=== PATIENT | male | born 1975 | race African-American/Black ===

== ENCOUNTER 2019-08-29 04:29 | Inpatient (IN) ==
[2019-08-29] MEDS ORDERED: hydrALAZINE 20 MG/1 ML VIAL IV STA ×2 (04:51→05:11)
[2019-08-29] MEDS ORDERED: hydrALAZINE 20 MG/1 ML VIAL ONE (04:52)
[2019-08-29] MEDS ORDERED: ONDANSETRON 4 MG/2 ML VIAL ONE (05:15)
[2019-08-29] MEDS ORDERED: MORPHINE 4 MG/1 ML VIAL ONE (05:16)
[2019-08-29 05:21] LABS: Basophils # 0.1 10*3/uL (0.0-0.2); Basophils % 0.8 % (0.0-0.8); Eosinophils # 0.4 10*3/uL (0.0-0.87); Eosinophils % 3.7 % (0.00-10.9); Hemoglobin 8.7 GM/DL (14.0-18.0); Immature Granulocytes % 0.3 %; Immature Granulocytes Absolute 0.03 #; Lymphocytes # 1.7 10*3/uL (1.4-4.0); Lymphocytes % 16.5 % (21.2-54.2); Mean Corpuscular HGB Conc 32.2 GM/DL (32-36); Mean Corpuscular Volume 88.8 FL (87-102); Monocytes % 7.2 % (1.7-12.7); Neutrophils % 71.5 % (38.7-73.9); Platelet Count 84 T/CUMM (130-400); Red Blood Count 3.04 MC/CUMM (3.8-5.5); Red Cell Distribution Width 17.6 % (9.3-17.3); White Blood Count 10.1 T/CUMM (4-12)
[2019-08-29] MEDS ORDERED: ONDANSETRON 4 MG/2 ML VIAL IV STA (05:28)
[2019-08-29] MEDS ORDERED: MORPHINE 4 MG/1 ML VIAL IV STA (05:28)
[2019-08-29 05:41] LABS: Albumin 3.5 G/DL (3.4-5.0); Bilirubin,Total 0.5 MG/DL (0.2-1.0); Calcium 9.4 MG/DL (8.5-10.1); Eosinophils 5 % (0-10); Lymphocytes 21 % (20-55); Osmolality,Calculated 269.8 MOS/KG (273-304); Segmented Neutrophils 70 % (50-85); Total Cells Counted 100; Total Protein 7.4 G/DL (6.4-8.3)
[2019-08-29 05:42] LABS: Hypochromasia 1+; Microcytosis Slight; Ovalocytes Slight
[2019-08-29] MEDS ORDERED: niCARdipine 25 MG/10 ML VIAL IV ONE ×3 (05:51→10:47)
[2019-08-29 05:55] LABS: PT Patient Result 10.9 SECS (9.6-12.2)
[2019-08-29] MEDS: niCARdipine INJ 25 MG in SODIUM CHLORIDE 0.9% 240 ML IV PRN ×4 (06:00→12:42)
[2019-08-29 06:03] LABS: Troponin I 0.071 NG/ML (0.00-0.045)
[2019-08-29] MEDS ORDERED: cloNIDine 0.1 MG TABLET PO STA (08:11)
[2019-08-29] MEDS: ISOSORBIDE MONONITRATE 60 MG TABLET PO SCH (10:02)
[2019-08-29] MEDS: LOSARTAN 50 MG TABLET PO SCH (10:02)
[2019-08-29] MEDS: MORPHINE 4 MG/1 ML VIAL IV PRN (11:06)
[2019-08-29] MEDS ORDERED: ONDANSETRON 4 MG/2 ML VIAL IV PRN (12:02)
[2019-08-29] MEDS ORDERED: LACTULOSE 20 GM/30 ML UDCUP PO PRN (12:02)
[2019-08-29] MEDS ORDERED: CALCIUM CARBONATE CHEW 500 MG TABLET PO PRN (12:02)
[2019-08-29] MEDS: PANTOPRAZOLE 40 MG TABLET PO SCH (12:38)
[2019-08-29] MEDS: oxyCODONE/ACETAMINOPHEN 5-325 MG TABLET PO PRN (17:37)
[2019-08-30] MEDS: NIFEdipine 10 MG CAPSULE PO PRN ×3 (04:12→16:24)
[2019-08-30] MEDS: oxyCODONE/ACETAMINOPHEN 5-325 MG TABLET PO PRN (04:13)
[2019-08-30 04:44] LABS: Basophils # 0.1 10*3/uL (0.0-0.2); Basophils % 0.9 % (0.0-0.8); Eosinophils # 0.3 10*3/uL (0.0-0.87); Eosinophils % 3.5 % (0.00-10.9); Hematocrit 25.1 VOL% (42.0-52.0); Hemoglobin 7.9 GM/DL (14.0-18.0); Immature Granulocytes % 0.4 %; Immature Granulocytes Absolute 0.03 #; Lymphocytes % 12.2 % (21.2-54.2); Mean Corpuscular HGB Conc 31.5 GM/DL (32-36); Mean Corpuscular Volume 90.3 FL (87-102); Mean Platelet Volume 11.3 FL (9.6-12.0); Monocytes % 8.8 % (1.7-12.7); Neutrophils % 74.2 % (38.7-73.9); Platelet Count 143 T/CUMM (130-400); Red Blood Count 2.78 MC/CUMM (3.8-5.5); Red Cell Distribution Width 17.4 % (9.3-17.3)
[2019-08-30 05:15] LABS: Calcium 8.5 MG/DL (8.5-10.1); Osmolality,Calculated 270.5 MOS/KG (273-304)
[2019-08-30] MEDS: PANTOPRAZOLE 40 MG TABLET PO SCH (08:56)
[2019-08-30] MEDS: ISOSORBIDE MONONITRATE 60 MG TABLET PO SCH (08:56)
[2019-08-30] MEDS: LOSARTAN 50 MG TABLET PO SCH (08:56)
[2019-08-30] MEDS: MORPHINE 4 MG/1 ML VIAL IV PRN ×2 (16:24→20:32)
[2019-08-31] MEDS: oxyCODONE/ACETAMINOPHEN 5-325 MG TABLET PO PRN (00:41)
[2019-08-31] MEDS: NIFEdipine 10 MG CAPSULE PO PRN (04:31)
[2019-08-31] MEDS: MORPHINE 4 MG/1 ML VIAL IV PRN (04:31)
[2019-08-31 05:36] LABS: Basophils # 0.1 10*3/uL (0.0-0.2); Basophils % 0.8 % (0.0-0.8); Eosinophils # 0.3 10*3/uL (0.0-0.87); Eosinophils % 3.6 % (0.00-10.9); Hematocrit 25.9 VOL% (42.0-52.0); Hemoglobin 8.3 GM/DL (14.0-18.0); Immature Granulocytes % 0.7 %; Immature Granulocytes Absolute 0.07 #; Lymphocytes # 1.5 10*3/uL (1.4-4.0); Lymphocytes % 15.3 % (21.2-54.2); Mean Platelet Volume 11.5 FL (9.6-12.0); Monocytes % 11.5 % (1.7-12.7); Neutrophils % 68.1 % (38.7-73.9); Platelet Count 129 T/CUMM (130-400); Red Blood Count 2.91 MC/CUMM (3.8-5.5); Red Cell Distribution Width 17.3 % (9.3-17.3); White Blood Count 9.5 T/CUMM (4-12)
[2019-08-31 05:51] LABS: Calcium 8.6 MG/DL (8.5-10.1); Osmolality,Calculated 266.8 MOS/KG (273-304)
[2019-08-31] MEDS: PANTOPRAZOLE 40 MG TABLET PO SCH (10:47)
[2019-08-31] MEDS: LOSARTAN 50 MG TABLET PO SCH (10:47)
[2019-08-31] MEDS: ISOSORBIDE MONONITRATE 60 MG TABLET PO SCH (10:47)
[2019-08-31 17:10] VITALS: BP 188/88
== END 2019-08-31 14:00 | disposition home or self-care (01) | DRG 291 ==
LOC: EDBD → EDUNIT# → N.ED 04:29 → N.EDINP 08:12 → SUATTDRO 08:12 → N.CC 09:03 → N.5E 08-30 17:26
PROVIDERS: ADMIT Internal Medicine; ATTEND Internal Medicine

== ENCOUNTER 2019-11-15 14:03 | Inpatient (IN) ==
[2019-11-15] MEDS ORDERED: FUROSEMIDE 100 MG/10 ML VIAL IV STA (14:28)
[2019-11-15 15:13] LABS: Basophils # 0.1 10*3/uL (0.0-0.2); Basophils % 0.9 % (0.0-0.8); Eosinophils # 0.3 10*3/uL (0.0-0.87); Eosinophils % 3.6 % (0.00-10.9); Hematocrit 30.9 VOL% (42.0-52.0); Hemoglobin 10.3 GM/DL (14.0-18.0); Immature Granulocytes % 0.4 %; Immature Granulocytes Absolute 0.04 #; Lymphocytes # 1.1 10*3/uL (1.4-4.0); Lymphocytes % 12.1 % (21.2-54.2); Mean Corpuscular HGB Conc 33.3 GM/DL (32-36); Mean Corpuscular Volume 82.6 FL (87-102); Monocytes % 9.3 % (1.7-12.7); Neutrophils % 73.7 % (38.7-73.9); Platelet Count 62 T/CUMM (130-400); Red Blood Count 3.74 MC/CUMM (3.8-5.5); Red Cell Distribution Width 18.2 % (9.3-17.3); White Blood Count 8.9 T/CUMM (4-12)
[2019-11-15 15:32] LABS: Alanine Aminotransferase 12 U/L (16-61); Alkaline Phosphatase 46 U/L (45-117); Aspartate Amino Transferase 12 U/L (0-37); Blood Urea Nitrogen 82 MG/DL (7-18); Calcium 9.6 MG/DL (8.5-10.1); Estimated Glom Filtration Rate 4 ML/MIN; Ferritin 1833.8 ng/ml (26-388); Glucose 98 MG/DL (74-106); Osmolality,Calculated 290.4 MOS/KG (273-304); Total Protein 7.7 G/DL (6.4-8.3)
[2019-11-15 15:37] LABS: INR 1.1; PT Patient Result 11.4 SECS (9.8-11.9); Partial Thromboplastin Time 35.3 SECS (23.9-33.8)
[2019-11-15] MEDS ORDERED: hydrALAZINE 20 MG/1 ML VIAL IV STA ×2 (15:41→16:34)
[2019-11-15 15:45] LABS: Troponin I 0.243 NG/ML (0.00-0.045)
[2019-11-15 16:01] LABS: Anisocytosis 2+; Hypochromasia 1+; Microcytosis Slight; Platelet Estimate Adequate
[2019-11-15 16:02] LABS: Schistocytes Few
[2019-11-15] MEDS ORDERED: DEXTROSE 10% 250 ML BAG IV PRN (16:54)
[2019-11-15] MEDS ORDERED: GLUCAGON 1 MG VIAL IM PRN (16:54)
[2019-11-15] MEDS: NICOTINE 21 MG/24 HR PATCH TRANSDERM SCH (18:45)
[2019-11-15] MEDS: cefTRIAXone 1,000 MG in SYRINGE 1 EACH IV SCH (18:45)
[2019-11-15] MEDS: AZITHROMYCIN INJ 500 MG in SODIUM CHLORIDE 0.9% 250 ML IV SCH (21:38)
[2019-11-15] MEDS ORDERED: FUROSEMIDE 40 MG/4 ML VIAL ONE (22:21)
[2019-11-15] MEDS ORDERED: FUROSEMIDE INJ 160 MG in SODIUM CHLORIDE 0.9% 50 ML IV ONE (22:22)
[2019-11-15] MEDS ORDERED: metOLazone 5 MG TABLET PO ONE (23:00)
[2019-11-16 03:42] LABS: Basophils # 0.1 10*3/uL (0.0-0.2); Basophils % 0.8 % (0.0-0.8); Eosinophils # 0.1 10*3/uL (0.0-0.87); Eosinophils % 0.7 % (0.00-10.9); Hematocrit 30.6 VOL% (42.0-52.0); Hemoglobin 9.9 GM/DL (14.0-18.0); Immature Granulocytes % 0.4 %; Immature Granulocytes Absolute 0.04 #; Lymphocytes % 9.5 % (21.2-54.2); Mean Corpuscular HGB Conc 32.4 GM/DL (32-36); Mean Corpuscular Volume 84.1 FL (87-102); Monocytes % 6.1 % (1.7-12.7); Neutrophils % 82.5 % (38.7-73.9); Platelet Count 94 T/CUMM (130-400); Red Blood Count 3.64 MC/CUMM (3.8-5.5); Red Cell Distribution Width 18.2 % (9.3-17.3); White Blood Count 10.4 T/CUMM (4-12)
[2019-11-16 04:07] LABS: Alanine Aminotransferase < 9 U/L (16-61); Albumin 2.9 G/DL (3.4-5.0); Alkaline Phosphatase 43 U/L (45-117); Aspartate Amino Transferase 11 U/L (0-37); Blood Urea Nitrogen 92 MG/DL (7-18); Calcium 9.5 MG/DL (8.5-10.1); Estimated Glom Filtration Rate 3 ML/MIN; Glucose 86 MG/DL (74-106); Osmolality,Calculated 288.7 MOS/KG (273-304); Total Protein 7.7 G/DL (6.4-8.3)
[2019-11-16 05:31] LABS: Hypochromasia 1+; Microcytosis 1+
[2019-11-16 05:32] LABS: Acanthocytes Few; Anisocytosis 1+; Burr Cells Few; Poikilocytosis 1+; Target Cells Slight
[2019-11-16 05:33] LABS: Platelet Estimate Decreased
[2019-11-16] MEDS ORDERED: HEPARIN 10,000 UNIT/10 ML VIAL IV PRN (06:17)
[2019-11-16 06:40] LABS: Apearance,Urine CLEAR (Clear); Bacteria,Urine Many /HPF (Few); Bilirubin,Urine Negative (Negative); Blood, Urine Negative (Negative); Glucose,Urine (UA) Negative (Negative); Ketones,Urine Negative (Negative); Mucus,Urine Occasional /LPF (Occasional); Nitrite,Urine Negative (Negative); Protein,Urine 100 MG/DL; RBC,Urine 2 /HPF (0-4); Squamous Epithelial Cell,Urine Occasional /HPF (0-10); Urine Color Yellow (Yellow); Urine Urobilinogen < 2.0 EU/DL (0.2-1.0); WBC,Urine <1 /HPF (0-6)
[2019-11-16] MEDS: NICOTINE 21 MG/24 HR PATCH TRANSDERM SCH (08:56)
[2019-11-16] MEDS: PANTOPRAZOLE 40 MG TABLET PO SCH (08:57)
[2019-11-16] MEDS ORDERED: CALCIUM (CARBONATE) 600 MG TABLET PO PRN (11:19)
[2019-11-16] MEDS ORDERED: HEPARIN 10,000 UNIT/10 ML VIAL IV ONE (11:30)
[2019-11-16] MEDS ORDERED: HEPARIN 10,000 UNIT/10 ML VIAL IV SCH (11:45)
[2019-11-16] MEDS: LOSARTAN 50 MG TABLET PO SCH (11:50)
[2019-11-16] MEDS: ISOSORBIDE MONONITRATE 60 MG TABLET PO SCH (11:50)
[2019-11-16] MEDS: SEVELAMER CARBONATE 800 MG TABLET PO SCH ×2 (12:11→17:43)
[2019-11-16] MEDS ORDERED: ACETAMINOPHEN 325 MG TABLET ONE (12:19)
[2019-11-16] MEDS: hydrALAZINE 20 MG/1 ML VIAL IV PRN ×2 (16:25→21:06)
[2019-11-16] MEDS: cefTRIAXone 1,000 MG in SYRINGE 1 EACH IV SCH (17:30)
[2019-11-16] MEDS: ACETAMINOPHEN 325 MG TABLET PO PRN (20:24)
[2019-11-16] MEDS: AZITHROMYCIN INJ 500 MG in SODIUM CHLORIDE 0.9% 250 ML IV SCH (21:04)
[2019-11-17 04:45] LABS: Basophils # 0.1 10*3/uL (0.0-0.2); Basophils % 0.9 % (0.0-0.8); Eosinophils # 0.6 10*3/uL (0.0-0.87); Eosinophils % 6.8 % (0.00-10.9); Hematocrit 30.5 VOL% (42.0-52.0); Hemoglobin 10.1 GM/DL (14.0-18.0); Immature Granulocytes % 0.3 %; Immature Granulocytes Absolute 0.03 #; Lymphocytes # 1.3 10*3/uL (1.4-4.0); Lymphocytes % 14.8 % (21.2-54.2); Mean Corpuscular HGB Conc 33.1 GM/DL (32-36); Mean Corpuscular Volume 81.6 FL (87-102); Neutrophils % 69.2 % (38.7-73.9); Platelet Count 102 T/CUMM (130-400); Red Blood Count 3.74 MC/CUMM (3.8-5.5); Red Cell Distribution Width 18.5 % (9.3-17.3); White Blood Count 8.7 T/CUMM (4-12)
[2019-11-17] MEDS: hydrALAZINE 20 MG/1 ML VIAL IV PRN (05:00)
[2019-11-17 05:17] LABS: Bilirubin,Total 0.7 MG/DL (0.2-1.0); Calcium 9.4 MG/DL (8.5-10.1); Osmolality,Calculated 282.4 MOS/KG (273-304); Total Protein 7.8 G/DL (6.4-8.3)
[2019-11-17 06:15] LABS: Eosinophils 10 % (0-10); Lymphocytes 18 % (20-55); Segmented Neutrophils 66 % (50-85); Total Cells Counted 100
[2019-11-17 06:16] LABS: Anisocytosis 1+; Ovalocytes 1+; Target Cells 1+
[2019-11-17 06:17] LABS: Acanthocytes Few; Platelet Estimate Adequate
[2019-11-17] MEDS ORDERED: ONDANSETRON 4 MG/2 ML VIAL IV ONE (08:30)
[2019-11-17] MEDS ORDERED: ONDANSETRON 4 MG/2 ML VIAL ONE (08:32)
[2019-11-17] MEDS: LOSARTAN 50 MG TABLET PO SCH (09:04)
[2019-11-17] MEDS: NICOTINE 21 MG/24 HR PATCH TRANSDERM SCH (09:04)
[2019-11-17] MEDS: AZITHROMYCIN 250 MG TABLET PO SCH (09:04)
[2019-11-17] MEDS: SEVELAMER CARBONATE 800 MG TABLET PO SCH ×3 (09:04→17:22)
[2019-11-17] MEDS: PANTOPRAZOLE 40 MG TABLET PO SCH (09:04)
[2019-11-17] MEDS: ISOSORBIDE MONONITRATE 60 MG TABLET PO SCH (09:04)
[2019-11-17] MEDS: cefTRIAXone 1,000 MG in SYRINGE 1 EACH IV SCH (18:00)
[2019-11-18 05:19] LABS: Basophils # 0.1 10*3/uL (0.0-0.2); Basophils % 0.6 % (0.0-0.8); Eosinophils # 0.7 10*3/uL (0.0-0.87); Eosinophils % 9.3 % (0.00-10.9); Hematocrit 28.6 VOL% (42.0-52.0); Hemoglobin 9.3 GM/DL (14.0-18.0); Immature Granulocytes % 0.5 %; Immature Granulocytes Absolute 0.04 #; Lymphocytes # 1.2 10*3/uL (1.4-4.0); Lymphocytes % 15.3 % (21.2-54.2); Mean Corpuscular HGB Conc 32.5 GM/DL (32-36); Mean Corpuscular Volume 83.1 FL (87-102); Monocytes % 8.1 % (1.7-12.7); Neutrophils % 66.2 % (38.7-73.9); Platelet Count 101 T/CUMM (130-400); Red Blood Count 3.44 MC/CUMM (3.8-5.5); Red Cell Distribution Width 18.4 % (9.3-17.3); White Blood Count 7.8 T/CUMM (4-12)
[2019-11-18 05:33] LABS: Albumin 2.6 G/DL (3.4-5.0); Bilirubin,Total 0.5 MG/DL (0.2-1.0); Calcium 9.2 MG/DL (8.5-10.1); Osmolality,Calculated 277.9 MOS/KG (273-304); Total Protein 7.2 G/DL (6.4-8.3)
[2019-11-18 06:06] LABS: Platelet Estimate Adequate
[2019-11-18 06:08] LABS: Anisocytosis 1+; Burr Cells Few; Macrocytosis 1+; Poikilocytosis Slight
[2019-11-18] MEDS: SEVELAMER CARBONATE 800 MG TABLET PO SCH ×3 (08:29→16:41)
[2019-11-18] MEDS: LOSARTAN 50 MG TABLET PO SCH (08:30)
[2019-11-18] MEDS: ISOSORBIDE MONONITRATE 60 MG TABLET PO SCH (08:30)
[2019-11-18] MEDS: AZITHROMYCIN 250 MG TABLET PO SCH (08:30)
[2019-11-18] MEDS: PANTOPRAZOLE 40 MG TABLET PO SCH (08:30)
[2019-11-18] MEDS: NICOTINE 21 MG/24 HR PATCH TRANSDERM SCH (08:30)
[2019-11-18] MEDS ORDERED: FLUCONAZOLE INJ 400 MG in PREMIX 1 EACH IV SCH (16:00)
[2019-11-18] MEDS: hydrALAZINE 20 MG/1 ML VIAL IV PRN (17:36)
[2019-11-18] MEDS: cefTRIAXone 1,000 MG in SYRINGE 1 EACH IV SCH (17:58)
[2019-11-19] MEDS: SEVELAMER CARBONATE 800 MG TABLET PO SCH ×3 (09:05→16:25)
[2019-11-19] MEDS: AZITHROMYCIN 250 MG TABLET PO SCH (09:05)
[2019-11-19] MEDS: NICOTINE 21 MG/24 HR PATCH TRANSDERM SCH (09:05)
[2019-11-19] MEDS: PANTOPRAZOLE 40 MG TABLET PO SCH (09:05)
[2019-11-19] MEDS: ISOSORBIDE MONONITRATE 60 MG TABLET PO SCH (09:05)
[2019-11-19] MEDS: LOSARTAN 50 MG TABLET PO SCH (09:05)
[2019-11-19] MEDS: cefTRIAXone 1,000 MG in SYRINGE 1 EACH IV SCH (17:30)
[2019-11-19] MEDS: ACETAMINOPHEN 325 MG TABLET PO PRN (21:50)
[2019-11-20 06:57] LABS: Basophils # 0.1 10*3/uL (0.0-0.2); Basophils % 1.4 % (0.0-0.8); Eosinophils % 14.9 % (0.00-10.9); Hematocrit 28.5 VOL% (42.0-52.0); Hemoglobin 9.6 GM/DL (14.0-18.0); Immature Granulocytes % 0.3 %; Immature Granulocytes Absolute 0.02 #; Lymphocytes # 0.9 10*3/uL (1.4-4.0); Lymphocytes % 14.6 % (21.2-54.2); Mean Corpuscular HGB Conc 33.7 GM/DL (32-36); Monocytes % 7.9 % (1.7-12.7); Neutrophils % 60.9 % (38.7-73.9); Platelet Count 116 T/CUMM (130-400); Red Blood Count 3.52 MC/CUMM (3.8-5.5); Red Cell Distribution Width 18.2 % (9.3-17.3); White Blood Count 6.5 T/CUMM (4-12)
[2019-11-20] MEDS: SEVELAMER CARBONATE 800 MG TABLET PO SCH ×3 (07:03→16:10)
[2019-11-20 07:21] LABS: Calcium 8.9 MG/DL (8.5-10.1); Eosinophils 20 % (0-10); Lymphocytes 8 % (20-55); Osmolality,Calculated 275.8 MOS/KG (273-304); Platelet Estimate Decreased; Segmented Neutrophils 67 % (50-85); Total Cells Counted 100
[2019-11-20 07:22] LABS: Hypochromasia 1+
[2019-11-20] MEDS ORDERED: CLINDAMYCIN INJ 900 MG in PREMIX 1 EACH IV ONE (07:27)
[2019-11-20] MEDS: NICOTINE 21 MG/24 HR PATCH TRANSDERM SCH (09:03)
[2019-11-20] MEDS: hydrALAZINE 20 MG/1 ML VIAL IV PRN (09:03)
[2019-11-20] MEDS: ISOSORBIDE MONONITRATE 60 MG TABLET PO SCH (10:02)
[2019-11-20] MEDS: LOSARTAN 50 MG TABLET PO SCH (10:02)
[2019-11-20] MEDS: PANTOPRAZOLE 40 MG TABLET PO SCH (10:03)
[2019-11-20] MEDS: ACETAMINOPHEN 325 MG TABLET PO PRN (16:10)
[2019-11-20] MEDS: cefTRIAXone 1,000 MG in SYRINGE 1 EACH IV SCH (18:00)
[2019-11-21 05:12] LABS: Basophils # 0.1 10*3/uL (0.0-0.2); Eosinophils # 0.9 10*3/uL (0.0-0.87); Eosinophils % 14.7 % (0.00-10.9); Hematocrit 28.2 VOL% (42.0-52.0); Hemoglobin 9.2 GM/DL (14.0-18.0); Immature Granulocytes % 0.5 %; Immature Granulocytes Absolute 0.03 #; Lymphocytes % 15.2 % (21.2-54.2); Mean Corpuscular HGB Conc 32.6 GM/DL (32-36); Monocytes % 8.3 % (1.7-12.7); Neutrophils % 59.3 % (38.7-73.9); Platelet Count 173 T/CUMM (130-400); Red Blood Count 3.44 MC/CUMM (3.8-5.5); Red Cell Distribution Width 18.5 % (9.3-17.3); White Blood Count 6.4 T/CUMM (4-12)
[2019-11-21 05:46] LABS: Eosinophils 16 % (0-10); Lymphocytes 17 % (20-55); Platelet Estimate Adequate; Segmented Neutrophils 59 % (50-85); Total Cells Counted 100
[2019-11-21 05:47] LABS: Hypochromasia 1+; Ovalocytes Slight; Target Cells Few
[2019-11-21] MEDS ORDERED: CLINDAMYCIN INJ 900 MG in PREMIX 1 EACH IV ONE (06:00)
[2019-11-21] MEDS ORDERED: ONDANSETRON 4 MG/2 ML VIAL IV PRN (09:42)
[2019-11-21] MEDS: SEVELAMER CARBONATE 800 MG TABLET PO SCH ×3 (09:45→16:15)
[2019-11-21] MEDS: LOSARTAN 50 MG TABLET PO SCH (09:45)
[2019-11-21] MEDS: NICOTINE 21 MG/24 HR PATCH TRANSDERM SCH (09:45)
[2019-11-21] MEDS: ISOSORBIDE MONONITRATE 60 MG TABLET PO SCH (09:45)
[2019-11-21] MEDS: PANTOPRAZOLE 40 MG TABLET PO SCH (09:46)
[2019-11-21] MEDS: hydrALAZINE 20 MG/1 ML VIAL IV PRN (09:57)
[2019-11-21] MEDS ORDERED: hydrALAZINE 20 MG/1 ML VIAL IV ONE (12:20)
[2019-11-21 17:44] LABS: Calcium 9.7 MG/DL (8.5-10.1); Osmolality,Calculated 278.9 MOS/KG (273-304)
[2019-11-21] MEDS: cefTRIAXone 1,000 MG in SYRINGE 1 EACH IV SCH (17:59)
[2019-11-22] MEDS: hydrALAZINE 20 MG/1 ML VIAL IV PRN ×2 (04:20→15:42)
[2019-11-22 06:13] LABS: Basophils # 0.1 10*3/uL (0.0-0.2); Basophils % 1.5 % (0.0-0.8); Eosinophils % 16.1 % (0.00-10.9); Hematocrit 26.2 VOL% (42.0-52.0); Hemoglobin 8.8 GM/DL (14.0-18.0); Immature Granulocytes % 0.3 %; Immature Granulocytes Absolute 0.02 #; Lymphocytes % 16.6 % (21.2-54.2); Mean Corpuscular HGB Conc 33.6 GM/DL (32-36); Mean Corpuscular Volume 80.4 FL (87-102); Mean Platelet Volume 11.2 FL (9.6-12.0); Monocytes % 10.3 % (1.7-12.7); Neutrophils % 55.2 % (38.7-73.9); Platelet Count 148 T/CUMM (130-400); Red Blood Count 3.26 MC/CUMM (3.8-5.5); Red Cell Distribution Width 18.6 % (9.3-17.3)
[2019-11-22 06:32] LABS: Calcium 9.3 MG/DL (8.5-10.1); Osmolality,Calculated 279.2 MOS/KG (273-304)
[2019-11-22 06:34] LABS: Eosinophils 13 % (0-10); Lymphocytes 15 % (20-55); Nucleated Red Blood Cells 1 (0-5); Platelet Estimate Adequate; Segmented Neutrophils 61 % (50-85); Total Cells Counted 100
[2019-11-22 06:35] LABS: Hypochromasia 1+; Ovalocytes Slight
[2019-11-22] MEDS ORDERED: LIDOCAINE 1%/EPI INJ 20 ML VIAL ONE (06:38)
[2019-11-22] MEDS ORDERED: HEPARIN 5,000 UNIT/1 ML VIAL ONE ×2 (06:38→13:52)
[2019-11-22] MEDS ORDERED: BUPIVACAINE 0.25% /EPI 10 ML VIAL ONE (06:39)
[2019-11-22] MEDS ORDERED: INSULIN REGULAR 100 UNIT/ML IV ONE (06:42)
[2019-11-22] MEDS ORDERED: DEXTROSE 10% 250 ML BAG IV ONE (06:43)
[2019-11-22] MEDS ORDERED: SODIUM POLYSTYRENE SULFATE 15 GM/60 ML BOTTLE PO ONE (06:43)
[2019-11-22] MEDS: SEVELAMER CARBONATE 800 MG TABLET PO SCH ×3 (08:08→18:00)
[2019-11-22] MEDS: ISOSORBIDE MONONITRATE 60 MG TABLET PO SCH (08:38)
[2019-11-22] MEDS: NICOTINE 21 MG/24 HR PATCH TRANSDERM SCH (08:38)
[2019-11-22] MEDS: PANTOPRAZOLE 40 MG TABLET PO SCH (08:39)
[2019-11-22] MEDS ORDERED: LIDOCAINE 1% 20 ML VIAL ONE (13:53)
[2019-11-22] MEDS ORDERED: BUPIVACAINE MPF 0.25% 30 ML VIAL ONE (13:53)
[2019-11-22] MEDS ORDERED: fentaNYL 100 MCG/2 ML VIAL ONE (15:33)
[2019-11-22] MEDS ORDERED: propofoL 200 MG/20 ML VIAL IV ONE (15:33)
[2019-11-22] MEDS ORDERED: SODIUM CHLORIDE 0.9% 1,000 ML IV ONE (15:34)
[2019-11-22] MEDS ORDERED: METOPROLOL TARTRATE 5 MG/5 ML VIAL IV ONE (15:34)
[2019-11-22] MEDS ORDERED: ETOMIDATE 40 MG/20 ML VIAL IV ONE (15:34)
[2019-11-22] MEDS ORDERED: GLYCOPYRROLATE 0.4 MG/2 ML VIAL ONE (15:34)
[2019-11-22] MEDS ORDERED: ONDANSETRON 4 MG/2 ML VIAL IV PRN (15:36)
[2019-11-22] MEDS ORDERED: HYDROmorphone 2 MG/1 ML VIAL ONE (15:37)
[2019-11-22] MEDS ORDERED: hydrALAZINE 20 MG/1 ML VIAL ONE (15:37)
[2019-11-22] MEDS ORDERED: ONDANSETRON 4 MG/2 ML VIAL ONE (15:37)
[2019-11-22] MEDS: HYDROmorphone 2 MG/1 ML VIAL IV PRN ×4 (15:40→15:55)
[2019-11-22] MEDS ORDERED: hydrALAZINE 20 MG/1 ML VIAL IV ONE (15:52)
[2019-11-22] MEDS ORDERED: LABETALOL 100 MG/20 ML VIAL IV ONE (16:17)
[2019-11-22] MEDS: cefTRIAXone 1,000 MG in SYRINGE 1 EACH IV SCH (18:00)
[2019-11-22 18:24] VITALS: BP 176/93
== END 2019-11-22 20:08 | disposition home or self-care (01) | DRG 314 ==
LOC: EDBD → EDUNIT# → N.ED 14:03 → N.EDINP 16:50 → SUATTDRO 16:50 → SUPCPDRO 16:50 → N.ICU 17:47 → N.2E 11-18 17:14 → N.3E 11-21 17:59
PROVIDERS: ADMIT Internal Medicine; ATTEND Internal Medicine Cardiovascular Disease